=== PATIENT | male | born 1955 | race Caucasian/White ===

== ENCOUNTER → 2023-10-08 04:01 | Outpatient (REF) | payer MEDICARE, BC, SELFPAY | LOC: DHSLP 04:01 | PROVIDERS: ATTENDING PHYSICIAN Internal Medicine Critical Care Medicine; FAMILY PHYSICIAN Internal Medicine | DX: G47.19 Other hypersomnia (principal); R06.83 Snoring | CPT/HCPCS: 95806 ==

== ENCOUNTER → 2024-02-09 08:51 | Outpatient (REF) | payer MEDICARE, BC, SELFPAY | LOC: HWRAD 08:51 | PROVIDERS: ATTENDING PHYSICIAN Internal Medicine | DX: M25.551 Pain in right hip (principal) | CPT/HCPCS: 73502 ==